=== PATIENT | female | born 1925 | race Caucasian/White ===

== ENCOUNTER 2017-03-13 22:30 | Emergency (ER) | payer OTHER, BC ==
[~2017-03-13] VITALS: Ht 175.3 cm; Wt 67.1 kg
[~2017-03-13 22:30] MED LIST: ALEVE220 MG; ALEVE220 MG PO; AMLODIPINE BESYL5 MG PO; ANUSOL-HC30 GM RC; ARICEPT 5 MG TAB5 MG PO; ASPIR 8181 MG PO; ASPIRIN EC81 M1 PO; ASPIRIN81 M2 PO; AVELOX 400 MG400 MG PO; AZITHROMYCIN 2250 MG PO; BACTRIM DS TAB1 EACH PO; BENZONATATE200 MG PO; CALCIUM 600 +1 EAC1 PO; CALCIUM 600 +1 EAC5 PO; CALCIUM RECTAL; CEFDINIR300 MG PO; CENTRUM SILVER1 EAC4 PO; CIPRO250 M2 PO; CIPRO500 MG; CIPRO500 MG PO; CIPROFLOXACIN500 M1 PO; CITRATE OF MAG296 ML PO; CITRUCEL CAPLET1 TA1; CITRUCEL CAPLET1 TA1 PO; CITRUCEL CLEAR539 G1 PO; CLONIDINE0.1 PO; COLACE100 MG PO; COZAAR 50 MG TA50 M1 PO; DILANTIN100 MG PO; FELODIPINE ER10 MG PO; FLAGYL500 MG PO; FLUTICASONE PRO16 GM NS; HYDROCODONE-AP1 EAC6 PO; IMODIUM MULTI-1 EACH PO; KEFLEX500 MG PO; LABETALOL 100100 MG PO; LABETALOL HCL200 MG PO; LEVAQUIN 500 M500 M2 PO; LEVAQUIN 500 M500 MG PO; LEVOTHYROXIN0.075 MG PO; LEVOTHYROXINE 0.1 MG PO; MINIPRIN81 MG PO; NAPROSYN250 MG PO; NORCO 5-325 TA1 EACH PO; PROVENTIL HFA6.7 G1 INH; SYNTHROID100 MCG PO; TESSALON200 MG PO; TOPICORT15 G1; TRANDATE 200 M200 M1; TYLENOL325 MG PO; VITAMIN D3400 UNIT PO; VITAMIN D400 UNI1 PO; XARELTO20 MG PO; ZOFRAN ODT4 MG PO
[2017-03-13] MEDS ORDERED: ACETAMINOPHEN325 M1 (22:38)
[2017-03-13] MEDS ORDERED: IBUPROFEN 200200 M1 PO (22:38)
[2017-03-13] MEDS ORDERED: SEROQUEL 25 MG25 M1 PO (22:40)
[2017-03-13 23:04] LABS: ABSOLUTE NEUTROPHILS 4.4 thou/uL (1.4-8.2); BASOPHILS 1.2 % (0.0-2.0); EOSINOPHILS 3.3 % (0.0-3.0); HEMOGLOBIN 12.7 gm/dL (12.0-15.0); LYMPHOCYTES 27.3 % (24.0-44.0); MANUAL DIFF NO; MCH 33.6 pg (26.0-34.0); MCHC 34.4 g/dL (28.0-37.0); MCV 97.7 fL (80.0-100.0); MONOCYTES 10.4 % (1.0-8.0); PLATELET COUNT 249 thou/uL (150-400); POLYS 57.8 % (36.0-66.0); RBC 3.79 mil/uL (4.20-5.00); RDW 13.8 % (10.5-14.5); WBC 7.5 thou/uL (4.0-11.0)
[2017-03-13 23:10] LABS: CALCIUM 8.5 mg/dL (8.5-10.1); CREATININE 0.7 mg/dL (0.6-1.0); POTASSIUM 4.3 mmol/L (3.5-5.1)
[2017-03-13 23:56] LABS: URINE BILIRUBIN NEGATIVE (Negative); URINE BLOOD NEGATIVE (Negative); URINE COLOR YELLOW; URINE GLUCOSE-RANDOM* NEGATIVE (Negative); URINE KETONES TRACE (Negative); URINE LEUKOCYTES-REFLEX 1+ (Negative); URINE PROTEIN (DIPSTICK) TRACE (Negative); URINE UROBILINOGEN 0.2 E.U./dl (0.2-1.0)
[2017-03-14 00:05] LABS: CASTS None Seen /LPF (None Seen); SQUAMOUS None Seen /LPF (0-3); URINE WBC-REFLEX 0-5 Rare /HPF (0-5)
[2017-03-14 00:06] LABS: AMORPHOUS PHOSPHATES Moderate /LPF (None Seen); URINE RBC None Seen /HPF (0-2)
[2017-03-14] MEDS ORDERED: KEFLEX500 MG PO (00:44)
== END 2017-03-14 00:44 | disposition home or self-care (01) ==
LOC: ER 22:30
PROVIDERS: Emergency Medicine
DX: N39.0 Urinary tract infection, site not specified (principal); E03.9 Hypothyroidism, unspecified; Z90.710 Acquired absence of both cervix and uterus; I10 Essential (primary) hypertension; Z98.890 Other specified postprocedural states; Z91.030 Bee allergy status; Z91.013 Allergy to seafood; Z88.1 Allergy status to other antibiotic agents; Z88.8 Allergy status to other drugs, medicaments and biological substances; Z88.4 Allergy status to anesthetic agent